=== PATIENT | female | born 1955 | race Caucasian/White ===

== ENCOUNTER → 2024-05-04 | Outpatient (CLI) | payer MEDICARE, BC, SELFPAY ==
[2024-05-04 13:07] LABS: Basophils % (Auto) 0 % (0-2.5); Eosinophils # (Auto) 0.1 Thou/mm3 (0.0-0.5); Eosinophils % (Auto) 1 % (0-10); Hematocrit 41.7 % (36.0-46.0); Hemoglobin 13.9 g/dL (12.0-16.0); Immature Granulocytes % (Auto) 1 % (0-0); Immature Granulocytes Auto 0.06 Thou/mm3 (0.00-0.00); Lymphocytes # (Auto) 2.8 Thou/mm3 (1.0-4.8); Lymphocytes % (Auto) 26 % (10-50); Mean Corpuscular HGB Conc 33.3 g/dl (31.0-37.0); Mean Corpuscular Hemoglobin 30.2 pg (25.0-35.0); Mean Corpuscular Volume 91 fL (80-100); Monocytes # (Auto) 0.7 Thou/mm3 (0.0-0.8); Monocytes % (Auto) 6 % (0-12); Neutrophils # (Auto) 7.4 Thou/mm3 (1.8-7.7); Neutrophils % (Auto) 67 % (37-80); Nucleated Red Blood Cell % 0 /100 WBC (0); Platelet Count 198 Thou/mm3 (140-440); RDW Standard Deviation 40.9 fL (36.4-46.3); White Blood Count 11.1 Thou/mm3 (3.6-11.0)
[2024-05-04 13:34] LABS: T4 (Thyroxine) 5.5 mcg/dL (4.5-10.9)
[2024-05-04 13:35] LABS: Glucose Estimated Average 117 mg/dL (80-131); Hemoglobin A1C 5.7 % Hgb (4.8-6.0)
[2024-05-04 13:58] LABS: Alanine Aminotransferase 15 U/L (10-49); Alkaline Phosphatase 79 U/L (46-116); Anion Gap 9 (7-16); Aspartate Amino Transferase 11 U/L (0-34); BUN/Creatinine Ratio 21 Ratio (12-20); Bilirubin,Total 0.5 mg/dL (0.3-1.2); Blood Urea Nitrogen 19 mg/dL (9-23); Calcium 9.4 mg/dL (8.3-10.6); Calcium (Corrected) 9.4 mg/dL (8.5-10.1); Cardiac Risk Estimate 3.1 RATIO (3.7-5.6); Chloride 106 mMol/L (98-107); Cholesterol 161 mg/dL (132-200); Creatinine (Component) 0.9 mg/dL (0.6-1.3); Glucose 100 mg/dL (74-106); HDL Cholesterol 52 mg/dL (40-60); LDL Cholesterol,Calculated 82 mg/dL (0-130); Osmolality,Calculated 283 (275-295); Potassium 4.5 mMol/L (3.4-5.1); Sodium 141 mMol/L (136-145); Thyroid Stimulating Hormone 0.65 uIU/mL (0.55-4.78); Triglycerides 137 mg/dL (30-150); eGFR > 60 See Note
== END | disposition home or self-care (01) ==
LOC: COPL 11:44
PROVIDERS: PCP Family Medicine; Referring Provider Family Medicine; Visit Provider Family Medicine
DX: K21.9 Gastro-esophageal reflux disease without esophagitis (principal); E78.2 Mixed hyperlipidemia; E04.1 Nontoxic single thyroid nodule; M54.32 Sciatica, left side; R79.9 Abnormal finding of blood chemistry, unspecified
CPT/HCPCS: 36415; 80053; 80061; 83036; 84436; 84443; 85025

== ENCOUNTER 2024-08-15 09:28 | Outpatient (AMB) | payer MEDICARE, BC, SELFPAY ==
[2024-08-15 09:37] VITALS: BP 147/77; PULSE 56; RESP 19; TEMP 36.4; O2SAT 95; BMI 29.7
--- NOTE | 2024-08-15 09:37 | PD.GSCLVISIT ---
[facility] - [facility] 08/15/24 09:37 Height 1.6 m Height Method Stated Weight 76.232 kg Weight Measurement Method Standing Scale BMI 29.7 BP 147/77 H Blood Pressure Source Automatic Cuff Blood Pressure Location Left Upper Arm Position Sitting Respiration 19 Pulse 56 L Pulse Source Monitor Temp 97.6 F Temp Source Temporal Artery Scan Pulse Oximetry (%) 95 Oxygen Delivery Method Room Air Med/Allergies Allergies & Medications Allergies phenytoin (From Dilantin) Allergy (Verified 08/15/24 09:38) Medication Reconciliation Unobtainable 08/15/24 [History Confirmed 08/15/24] MA Intake Visit Data Collection New Patient or Established: New Patient (never been to [facility]) Seen by Clinical Staff ONLY (RN/MA): No Reason for Visit:: REFERRAL COLONOSCOPY Pain Present Currently: No PCP or OBGYN visit in last 3 months: Yes Hx Now: No Do You Feel Safe at Home: Yes Authorities Contacted: N/A Smoking Status Smoking Status: Never smoker Immunization / Flu Flu Vaccine in the Last 12 Months: Yes Flu Vaccine Exclusion Criteria: Already Received Past Medical History Social History SMOKING STATUS: Smoking status: Never smoker HPI HPI Narrative 69F referred for screening colonoscopy. Pt states she had one at ages 49 and 59 and was told they were normal. She denies any changes in stool caliber, blood in stool, anorexia and unintentional weight loss, and describes her BMs as soft and regular PMH: Mitral valve prolapse, GERD, HLD, neuropathy of feet PSHx: Appendectomy, tonsillectomy Meds: pantoprazole, vitamin D, cetrizine, atenolol, atorvastatin, gabapentin. No antiplt or anticoagulation Allergies: Dilantin Family hx: No known CRC or IBD, brother has prostate CA and had esophageal and bladder CA in past ROS Review of Systems Systems Reviewed: All systems reviewed, normal except as documented Objective/Exam General General Appearance: alert, cooperative and well groomed Resp Respiratory exam: Absent respiratory distress Assessment & Plan Diagnosis / Problem List (1) Encounter for screening colonoscopy: Status: Acute Assessment & Plan: 69F referred for screening colonoscopy. I explained benefits/risks including bleeding, the possibility of needing to abort prematurely for safety, and perforation requiring emergency surgery. 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
== END 2024-08-15 10:02 | disposition home or self-care (01) ==
LOC: HODSRG 09:28
PROVIDERS: PCP Family Medicine; Referring Provider Family Medicine; Supervising Provider Surgery; Visit Provider Surgery
DX: Z12.11 Encounter for screening for malignant neoplasm of colon (principal)
CPT/HCPCS: 99203; G0463

== ENCOUNTER 2024-09-20 08:20 | Day surgery (SDC) | payer MEDICARE, BC, SELFPAY ==
[2024-09-19 14:50] VITALS: BMI 29.7
[2024-09-20] VITALS (9 sets, daily range): BP systolic 133–162; BP diastolic 32–96; PULSE 51–72; RESP 12–20; TEMP 36.2; O2SAT 95–99; BMI 29.4
[2024-09-20] MEDS: RINGERS LACTATED 1000 ML 1,000 ML 125 ML IV (09:12)
[2024-09-20] MEDS: fentaNYL CIT INJ 50 mCg/ML AMP 2ML (ASD USE ONLY) IVP (09:12)
[2024-09-20] MEDS: MIDAZOLAM INJ 1 MG/ML VIAL 2 ML (ASD USE ONLY) 2 MG IVP (09:12)
== END 2024-09-20 09:55 | disposition home or self-care (01) ==
PROVIDERS: PCP Family Medicine; Referring Provider Surgery; Visit Provider Surgery
PROC: 0DBE8ZX Excision of Large Intestine, Via Natural or Artificial Opening Endoscopic, Diagnostic (ICD-10-PCS; CPT 45380; principal; 2024-09-20 10:00)
DX: Z12.11 Encounter for screening for malignant neoplasm of colon (principal); K21.9 Gastro-esophageal reflux disease without esophagitis; K64.8 Other hemorrhoids
CPT/HCPCS: G0121; J1200; J2250; J3010; J7120

== ENCOUNTER 2024-09-26 14:39 | Outpatient (AMB) | payer MEDICARE, BC, SELFPAY ==
--- NOTE | 2024-09-26 14:52 | GSCOFFNT_ITS ---
[facility] - [facility] 09/26/24 14:54 Height 1.6 m Height Method Stated Weight 75.863 kg Weight Measurement Method Standing Scale BMI 29.6 BP 128/77 Blood Pressure Source Automatic Cuff Blood Pressure Location Right Upper Arm Position Sitting Respiration 18 Pulse 57 L Pulse Source Monitor Temp 96.3 F L Temp Source Temporal Artery Scan Pulse Oximetry (%) 95 Oxygen Delivery Method Room Air Med/Allergies Allergies & Medications Allergies phenytoin (From Dilantin) Allergy (Mild, Verified 09/26/24 14:56) Rash Medication Reconciliation atenolol 25 mg tablet 25 mg PO DAILY Heart 09/19/24 [History Confirmed 09/26/24] atorvastatin 10 mg tablet 10 mg PO DAILY High cholesterol 09/19/24 [History Confirmed 09/26/24] biotin 10,000 mcg capsule 10,000 mcg PO QDAY Hair and nail health 09/19/24 [History Confirmed 09/26/24] calcium carbonate (Calcium 600) 600 mg PO QDAY 09/19/24 [History Confirmed 09/26/24] cetirizine 10 mg capsule (Zyrtec) 10 mg PO QDAY PRN allergy symptoms 09/19/24 [H istory Confirmed 09/26/24] coQ10 (ubiquinol) 200 mg capsule (CoQmax Ubiquinol) 200 mg PO QDAY 09/19/24 [History Confirmed 09/26/24] gabapentin 300 mg capsule 300 mg PO DAILY Neuropathy 09/19/24 [History Confirmed 09/26/24] omega 4-ymo-qmy-fish oil 300 mg-1,000 mg capsule (Fish Oil) 1 cap PO QDAY 09/19/24 [History Confirmed 09/26/24] pantoprazole 40 mg tablet,delayed release 40 mg PO DAILY Heartburn 09/19/24 [History Confirmed 09/26/24] MA Intake Visit Data Collection New Patient or Established: Established Patient (seen at [facility] within 3 years) Reason for Visit:: F/U COLONOSCOPY Pain Present Currently: No [employer] Required: No PCP or OBGYN visit in last 3 months: Yes Hx Now: No Do You Feel Safe at Home: Yes Authorities Contacted: N/A Smoking Status Smoking Status: Never smoker Immunization / Flu Flu Vaccine in the Last 12 Months: No Flu Vaccine Exclusion Criteria: No Exclusion Criteria Past Medical History Past Medical History NEUROLOGIC: Positive Neurological Disorders and Peripheral Neuropathy; Negative Seizures CARDIAC: Positive Cardiac Disorders (Mitral valve proplapse); Negative Congestive Heart Failure RESPIRATORY: Negative Chronic Obstructive Pulmonary Disease (COPD) GASTROINTESTINAL: Positive Gastrointestinal Disorders and Gastroesophageal Reflux Disease GENITOURINARY: Negative Renal Disease ENDOCRINE: Negative Diabetes Mellitus Type 1 or Diabetes Mellitus Type 2 OTHER HISTORY: Negative Blood Transfusions or Anesthesia Reactions Surgical History SURGICAL: Positive Oral Surgery and Tonsillectomy Social History SMOKING STATUS: Smoking status: Never smoker ALCOHOL: Alcohol Intake: Never HOUSING: Housing: House Travel Risk Travel Hx Recent Travel: No HPI HPI Narrative 69F who underwent screening colonoscopy 09/20 here to discuss results. Pt feels well overall with no complaints, and she had no abnormal findings aside from small internal hemorrhoids which are asymptomatic ROS Review of Systems Systems Reviewed: All systems reviewed, normal except as documented Objective/Exam General General Appearance: alert, cooperative and well groomed Resp Respiratory exam: Absent respiratory distress Results Colonoscopy report reviewed Assessment & Plan Diagnosis / Problem List (1) Encounter to discuss colonoscopy results: Status: Acute Assessment & Plan: 69F s/p screening colonoscopy 09/2024 with normal findings, due for next screening in 10 years Advanced Care Planning Advance care planning discussed with:: other Office Procedures GNS Level of Care Nursing/Assessment Patient Status: Established Patient Nursing Assessment/Reassesment: Medication Reconciliation, Update PMH in EMR and Vital Signs Coordination of Care: Complex Care and Chronic Disease 1-5, Education Complex Pt/Fam, Consent,records obtained, informed consent, Results/Orders obtained and Staff clarify orders Established Patient Charge Established Patient Point Assignment: 95 Established Patient Point Charge: EP Level 3 (80-115) Patient Portal Questionaires Social History Living Situation History Housing: House Tobacco History Smoking Status: Never smoker Alcohol History Alcohol Intake: Never Domestic Abuse History Do You Feel Safe at Home: Yes Review of Systems Report any current symptoms Only answer those that you have currently: Past Medical History Past Medical History Have you ever been diagnosed with any of the following: Neurological Problems Seizures: No Peripheral Neuropathy: Yes Cardiology Problems Congestive Heart Failure: No Respiratory Problems Chronic Obstructive Pulmonary Disease (COPD): No Stomache/Intestinal Problems Gastroesophageal Reflux Disease: Yes Genital/Urinary Problems Renal Disease: No Endocrine Problems Diabetes Mellitus Type 1: No Diabetes Mellitus Type 2: No Other Problems Blood Transfusions: No Anesthesia Reactions: No
[2024-09-26 14:54] VITALS: BP 128/77; PULSE 57; RESP 18; TEMP 35.7; O2SAT 95; BMI 29.6
== END 2024-09-26 15:09 | disposition home or self-care (01) ==
LOC: HODSRG 14:39
PROVIDERS: PCP Family Medicine; Referring Provider Family Medicine; Supervising Provider Surgery; Visit Provider Surgery
DX: Z71.2 Person consulting for explanation of examination or test findings (principal)
CPT/HCPCS: 99213; G0463